=== PATIENT | female | born 1955 | race Caucasian/White ===

== ENCOUNTER → 2017-02-11 | Outpatient (CLI) | payer OTHER ==
[~2017-02-11] MED LIST: BIOT800T PO; HUMERA; HYDR-3754 PO; LEFL20TA PO; MULT-955 PO
== END ==
LOC: EMS 18:07
PROVIDERS: ATTEND Emergency Medicine
DX: G89.11 Acute pain due to trauma (principal); R10.84 Generalized abdominal pain; R10.2 Pelvic and perineal pain; M54.89 Other dorsalgia; W20.8XXA Other cause of strike by thrown, projected or falling object, initial encounter; Y93.K9 Activity, other involving animal care